=== PATIENT | male | born 1955 | race Caucasian/White ===

== ENCOUNTER 2017-03-03 15:42 | Emergency (ER) | payer MEDICARE, OTHER ==
[~2017-03-03 15:42] MED LIST: ISOVUE-370 76%-LOCM 1 ML ONE
[2017-03-03] MEDS ORDERED: Ketorolac Tromethamine 30 MG/ML VIAL ONE (16:30)
[2017-03-03 16:35] LABS: #Eosinphils 0.3 thou/uL (0.0-0.7); #Lymphocytes 1.5 thou/uL (1.20-3.40); #Monocytes 0.4 thou/uL (0.11-0.59); #Neutrophils 2.7 thou/uL (1.40-6.50); %Eosinophils 6.3 % (0.0-10.0); %Monocytes 7.9 % (0.0-10.0); Hematocrit 39.1 % (42.0-52.0); Mean Platelet Volume 6.3 fL (7.4-10.4); Red Blood Cell (RBC) Count 4.24 mill/uL (4.70-6.10); White Blood Cell (WBC) Count 4.9 thou/uL (4.8-10.8)
[2017-03-03 16:56] LABS: ALT (SGPT) 24 U/L (8-55); AST (SGOT) 22 U/L (5-34); Alkaline Phosphatase 76 U/L (40-150); Anion Gap 12 mmol/L (10-20); BUN (Urea Nitrogen) 23 mg/dL (8.4-25.7); Bilirubin, Total 0.6 mg/dL (0.2-1.2); Calc. Creatinine Clearance 0 mL/min (70-130); Calcium 10.1 mg/dL (7.8-10.44); Carbon Dioxide 25 mmol/L (23-31); Chloride 104 mmol/L (98-107); Estimated GFR-MDRD 53; Globulin 2.8 g/dL (2.4-3.5); Protein, Total 7.2 g/dL (5.8-8.1)
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
== END 2017-03-03 18:47 | disposition home or self-care (01) ==
LOC: ERS 15:42
DX: S06.0X0A Concussion without loss of consciousness, initial encounter (principal); S20.222A Contusion of left back wall of thorax, initial encounter; I10 Essential (primary) hypertension; E78.5 Hyperlipidemia, unspecified; F41.9 Anxiety disorder, unspecified; V43.52XA Car driver injured in collision with other type car in traffic accident, initial encounter
CPT/HCPCS: 70450; 71010; 71260; 72125; 74177; 80053; 80307; 85025; 93005; 96374; J1885

== ENCOUNTER 2021-01-26 10:37 | Outpatient (CLI) | payer MEDICARE | END 2021-01-26 10:38 | disposition home or self-care (01) | LOC: BICULT 10:37 | PROVIDERS: ATTEND Internal Medicine Nephrology | DX: N18.30 Chronic kidney disease, stage 3 unspecified (principal) | CPT/HCPCS: 76770 ==